=== PATIENT | male | born 1970 | race Caucasian/White ===

== ENCOUNTER 2018-12-13 22:04 | Emergency (ER) | payer OTHER ==
[2018-12-13] MEDS ORDERED: Sodium Chloride 0.9% 1,000 ML IV ONE (22:23)
[2018-12-13] MEDS ORDERED: Ondansetron 4 MG/2 ML SDV IVPUSH ONE (22:24)
[2018-12-13] MEDS ORDERED: Morphine 4 MG/ML Syringe IVPUSH ONE (22:24)
[2018-12-13] MEDS ORDERED: HYDROmorphone 2 MG/ML SDV IVPUSH ONE (23:04)
--- NOTE | 2018-12-13 23:10 | EDM.PDOC ---
ED HPI GENERAL MEDICAL PROBLEM - General Chief Complaint: Abdominal Pain Stated Complaint: back pain Time Seen by Provider: 12/13/18 22:30 Source of Information: Reports: Patient - History of Present Illness INITIAL COMMENTS - FREE TEXT/NARRATIVE: pt c/o sever left flank/left sided and epigastric abd pain worsening since yesterday , report nausea with this , denies fever or chills , report nl BM daily. pt states he was seen at clinic earlier today and had abd CT showing diverticulitis , he was started on flagyl and cipro but sx continue to worsen. 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(s) LUQ Pain Score (Numeric/FACES): 10 - Related Data Allergies Allergy/AdvReac Type Severity Reaction Status Date / Time No Known Allergies Allergy Verified 12/13/18 22:23 Past Medical History Cardiovascular History: Reports: Hypertension Gastrointestinal History: Reports: Diverticulosis, Gastritis, GI Bleed, PUD Musculoskeletal History: Reports: Fracture Other Musculoskeletal History: hx bilat wrist fx Endocrine/Metabolic History: Reports: Obesity/BMI 30+, Other (See Below) Other Endocrine/Metabolic History: borderline DM - Infectious Disease History Infectious Disease History: Reports: Chicken Pox - Past Surgical History HEENT Surgical History: Reports: Adenoidectomy, Tonsillectomy GI Surgical History: Reports: Other (See Below) Other GI Surgeries/Procedures: exp lap Musculoskeletal Surgical History: Reports: None Social & Family History - Family History Family Medical History: Noncontributory - Tobacco Use Smoking Status *Q: Former Smoker Years of Tobacco use: 16 Used Tobacco, but Quit: Yes Month/Year Tobacco Last Used: 2002 - Alcohol Use Days Per Week of Alcohol Use: 4 Number of Drinks Per Day: 6 Total Drinks Per Week: 24 - Recreational Drug Use Recreational Drug Use: No ED ROS GENERAL - Review of Systems Review Of Systems: See Below Constitutional: Denies: Fever, Chills HEENT: Reports: No Symptoms Respiratory: Reports: No Symptoms. Denies: Shortness of Breath Cardiovascular: Reports: No Symptoms. Denies: Chest Pain GI/Abdominal: Reports: Abdominal Pain, Nausea, Vomiting. Denies: Constipation, Diarrhea : Reports: Flank Pain. Denies: Dysuria, Frequency Musculoskeletal: Denies: Neck Pain Skin: Reports: No Symptoms Neurological: Reports: No Symptoms ED EXAM, GI/ABD - Physical Exam Exam: See Below Exam Limited By: No Limitations General Appearance: Alert, Moderate Distress Throat/Mouth: Normal Inspection Head: Atraumatic Neck: Normal Inspection Respiratory/Chest: No Respiratory Distress, Lungs Clear, Normal Breath Sounds Cardiovascular: Normal Peripheral Pulses, Regular Rate, Rhythm GI/Abdominal Exam: Normal Bowel Sounds, Soft, Tender (tender over the LUQ and epigastric area, no rebound or gaurding ). No: Distended, Guarding Back Exam: Normal Inspection, Full Range of Motion. No: CVA Tenderness (R), CVA Tenderness (L) Extremities: Normal Inspection Neurological: Alert, Oriented Course - Vital Signs Text/Narrative:: pt feels comfortable after fluids , morphine, zofran and then dilaudid. i did repeat his CT tonight but with contrast , it finding were explained to pt , pt symptoms appear likely related to PUD. pt was given protonix Iv , will start him also on Protonix PO and have him follow with PCP in 2 days for re-check also to follow on the other questionable findings reported on his CT. pt to avoid alcohol and smoking, dietary modifications and supportive mng was explained. Last Recorded V/S: Last Vital Signs Temp 37.2 C 12/13/18 22:05 Pulse 109 H 12/13/18 22:05 Resp 24 H 12/13/18 22:05 BP 161/106 H 12/13/18 22:05 Pulse Ox 100 12/13/18 22:05 - Orders/Labs/Meds Orders: Active Orders 24 hr Category Date Time Status Abdomen Pelvis w Cont [CT] Stat Exams 12/13/18 23:10 Ordered Labs: Laboratory Tests 12/13/18 12/13/18 Range/Units 22:20 22:20 WBC 7.7 (4.5-12.0) X10-3/uL RBC 5.38 (4.30-5.75) x10(6)uL Hgb 15.9 (13.5-17.8) g/dL Hct 45.6 (30.0-51.3) % MCV 84.8 (80-96) fL MCH 29.6 (27.7-33.6) pg MCHC 34.9 (32.2-35.4) g/dL RDW 12.9 (11.5-15.5) % Plt Count 224 (125-369) X10(3)uL MPV 7.6 (7.4-10.4) fL Neut % (Auto) 71.4 (46-82) % Lymph % (Auto) 21.4 (13-37) % [place] % (Auto) 6.7 (4-12) % Eos % (Auto) 0 L (1.0-5.0) % Baso % (Auto) 0 (0-2) % Neut # (Auto) 5.5 (1.6-8.3) # Lymph # (Auto) 1.7 (0.6-5.0) # [place] # (Auto) 0.5 (0.0-1.3) # Eos # (Auto) 0.0 (0.0-0.8) # Baso # (Auto) 0.0 (0.0-0.2) # Sodium 136 (135-145) mmol/L Potassium 3.1 L (3.5-5.3) mmol/L Chloride 96 L (100-110) mmol/L Carbon Dioxide 29 (21-32) mmol/L BUN 8 (7-18) mg/dL Creatinine 1.0 (0.70-1.30) mg/dL Est Cr Clr Drug Dosing TNP Estimated GFR (MDRD) > 60 (>60) BUN/Creatinine Ratio 8.0 L (9-20) Glucose 167 H (80-116) mg/dL Calcium 9.1 (8.6-10.2) mg/dL Total Bilirubin 0.7 (0.1-1.3) mg/dL AST 23 (5-25) IU/L ALT 44 H (12-36) U/L Alkaline Phosphatase 86 (56-112) IU/L Total Protein 7.5 (6.0-8.0) g/dL Albumin 4.1 (3.5-5.2) g/dL Globulin 3.4 g/dL Albumin/Globulin Ratio 1.2 Amylase 32 (25-115) U/L Meds: Medications Discontinued Medications Generic Name Dose Route Start Last Admin Trade Name Freq PRN Reason Stop Dose Admin Hydromorphone HCl 2 mg 12/13/18 23:04 12/13/18 23:30 Dilaudid IVPUSH 12/13/18 23:05 2 mg ONETIME ONE Administration Sodium Chloride 1,000 mls @ 999 mls/hr 12/13/18 22:23 06/16/19 22:35 Normal Saline IV 12/13/18 23:23 999 mls/hr .BOLUS ONE Administration Iopamidol 150 ml 12/13/18 23:53 12/14/18 00:10 Isovue-370 (76%) IV 12/13/18 23:54 125 ml ONETIME ONE Administration Morphine Sulfate 4 mg 12/13/18 22:24 12/13/18 22:37 Morphine IVPUSH 12/13/18 22:25 4 mg ONETIME ONE Administration Morphine Sulfate Confirm 12/13/18 22:26 12/13/18 22:51 Morphine Administered 12/13/18 22:27 Not Given Dose 4 mg .ROUTE .STK-MED ONE Ondansetron HCl 4 mg 12/13/18 22:24 12/13/18 22:35 Zofran IVPUSH 12/13/18 22:25 4 mg ONETIME ONE Administration Departure - Departure Time of Disposition: 02:15 Disposition: Home, Self-Care 01 Clinical Impression: Peptic ulcer - Discharge Information Forms: ED Department Discharge - My Orders Last 24 Hours: My Active Orders 12/13/18 23:10 Abdomen Pelvis w Cont [CT] Stat - Assessment/Plan Last 24 Hours: My Active Orders 12/13/18 23:10 Abdomen Pelvis w Cont [CT] Stat
[2018-12-13] MEDS ORDERED: Iopamidol 755 MG/ML 150 ML Bottle IV ONE (23:53)
[2018-12-14] MEDS ORDERED: Pantoprazole 80 MG in Sodium Chloride 0.9% 100 ML IV ONE (02:15)
[2018-12-14] MEDS ORDERED: HYDROmorphone 2 MG/ML SDV IVPUSH ONE (02:16)
== END 2018-12-14 03:30 | disposition home or self-care (01) ==
LOC: FB.ED 22:04
DX: K27.9 Peptic ulcer, site unspecified, unspecified as acute or chronic, without hemorrhage or perforation (principal); E66.9 Obesity, unspecified; Z98.890 Other specified postprocedural states; Z87.891 Personal history of nicotine dependence
CPT/HCPCS: 36415; 74177; 80053; 82150; 85025; 96361; 96365; 96375; 96376; 99284; C9113; J1170; J2270; J2405; J7030; Q9967